=== PATIENT | male | born 1965 | race Two or more races ===

== ENCOUNTER 2018-04-01 08:53 | Emergency (ER) | payer OTHER ==
[2018-04-01 09:12] VITALS: BP 190/118
--- NOTE | 2018-04-01 09:12 | UC ---
Abdominal Pain Male HPI - HPI Summary HPI Summary: This is scribe, Paulo Kent, documenting for attending Dr. David Hendricks MD. A 52 y/o M presents to [facility] with c/o intermittent, R-sided suprapubic abd pain initial onset 1.5 months ago. Pt is speaking Irish, he has brought a friend to help translate. He ahs minimal pain at bedside. Associated sx: mild cough. Denies nausea, fever, genital pain. He is a non-smoker. Does not take daily medications. Allergic to penicillin (rash). Pt is unsure when he last saw a doctor. Denies FHx of abd problems. Denies surgical history. Pt does not have a PCP locally, he recently moved from [place]. I, Dr. Hendricks, personally performed the services described in this documentation as scribed in my presence and it is both accurate and complete. - History of Current Complaint Stated Complaint: ABD PAIN Hx Obtained From: Patient, Radar Repairer - friend Onset/Duration: Lasting Weeks, Still Present Timing: Intermittent Episodes Lasting: Severity Currently: Mild Location: Suprapubic - R-sided Associated Signs And Symptoms: Positive: Cough - mild. Negative: Fever, Nausea , Other - neg: genital pain - Allergies/Home Medications Allergies/Adverse Reactions: Allergies Allergy/AdvReac Type Severity Reaction Status Date / Time Penicillins Allergy Rash Verified 04/01/18 09:07 Home Medications: Home Medications NK [No Home Medications Reported] 04/01/18 [History Confirmed 04/01/18] PMH/Surg Hx/FS Hx/Imm Hx Previously Healthy: Yes - denies PMHx Other Endocrine History: neg: pacemaker Other Respiratory History: neg: COPD - Family History Known Family History: Positive: Cardiac Disease - mother , Hypertension Negative: Other - neg: abd problems - Social History Occupation: Unemployed Lives: Alone Smoking Status (MU): Never Smoked Tobacco - Non-smoker Review of Systems Constitutional: Negative - fever Respiratory: Cough - mild Gastrointestinal: Abdominal Pain, Other - neg: nausea Genitourinary: Other - neg: genital pain Is Patient Immunocompromised?: No All Other Systems Reviewed And Are Negative: Yes Physical Exam - Summary Physical Exam Summary: Appearance: Well appearing, no pain distress, moves freely without pain Skin: warm, dry, reflects adequate perfusion; soft 1 cm sebaceous cyst on R scapular area Head/face: normal Eyes: EOMI, GARTH ENT: normal Neck: supple, non-tender Respiratory: CTA, breath sounds present Cardiovascular: RRR, pulses symmetrical Abdomen: non-tender, soft, no pulsatile abd mass Genital: normal, no hernia Bowel Sounds: present Musculoskeletal: normal, strength/ROM intact; no LE edema Neuro: normal, sensory motor intact, A&Ox3 Triage Information Reviewed: Yes Vital Signs Reviewed: Yes Abd Pain Male Course/Dx - Course Course Of Treatment: BP noted and advised to follow up with PCP. Patient with intermittent abdominal pain over the last 1-1-1/2 months. No primary care follow-up. Hasn't seen a doctor in many years. Recently moved here from [place]. Abdomen is soft and nontender. There is no hernia sacs. He is having no urinary symptoms. I explained a shot and his friend/foreign language interpreter that we are limited in the testing we can obtain here. I offered them to go to the ER which they declined given that he is having no pain at present. His blood pressure is significantly elevated and it is unknown if this has been the case in the past. He will follow up closely with a primary care physician is giving the [facility] follow-up for the next several days. He is given the referral line to schedule appointment with a primary care physician. He is also instructed to go to the emergency room with return of abdominal pain, worse or other concerns. - Differential Dx/Clinical Impression Provider Diagnoses: 1. Chronic Abdominal Pain. 2. Elevated BP without dx of HTN Discharge - Sign-Out/Discharge Documenting (check all that apply): Patient Departure - Discharge Plan Condition: Improved Disposition: HOME Patient Education Materials: Hypertension (ED), Chronic Abdominal Pain (ED) Print Language: UKRAINIAN Referrals: [facility] [Outside] [facility] REFERRAL [Outside] Additional Instructions: Your blood pressure was elevated during todays visit; please follow up with your primary care provider within a week for further evaluation. Call today to schedule an appointment with a doctor. You will need to have your blood pressure rechecked within 1 week. Do not smoke or drink alcohol. You should also schedule to have a colonscopy. You may need blood work, imaging such as CT scan or other testing if you continue to have abdominal pain. Take tylenol or ibuprofen for discomfort. Go to the ER with increased abdominal pain , fever, worse or other concerns as discussed. The urgent care center is very limited in the testing it can provide for this type of complaint. Llame hoy para programar jaswant jeremie con un mdico. Tendr que volver a controlar evans presin arterial dentro de 1 semana. No fume ni max alcohol. [place] debe programar para tener jaswant colonscopa. Es posible que necesite anlisis de charles , imgenes emory jaswant tomografa computarizada u otras pruebas si contina teniendo dolor abdominal. [place] Tylenol o ibuprofeno para la incomodidad. Vaya a la carl de emergencias con un aumento de dolor abdominal, fiebre, empeoramiento u otras preocupaciones, emory se discuti. El centro de atencin de urgencia es muy limitado en las pruebas que puede proporcionar para erwin tipo de reclamo. - Billing Disposition and Condition Condition: IMPROVED Disposition: Home
== END 2018-04-01 09:32 | disposition home or self-care (01) ==
LOC: UCEAST 08:53
DX: R10.30 Lower abdominal pain, unspecified (principal); R03.0 Elevated blood-pressure reading, without diagnosis of hypertension; R05 Cough; Z88.0 Allergy status to penicillin; Z82.49 Family history of ischemic heart disease and other diseases of the circulatory system
CPT/HCPCS: 99201; G0463

== ENCOUNTER 2020-11-01 08:33 | Inpatient (IN) ==
[2020-11-01] MEDS ORDERED: NS 0.9% 1000 ml BAG 1,000 ML IV ONE (09:01)
[2020-11-01 10:04] LABS: ABS Basophils 0.1 10^3/ul (0-0.2); ABS Eosinophils 0.2 10^3/ul (0-0.6); ABS Lymphocytes 2.9 10^3/ul (1.0-4.8); ABS Monocytes 0.8 10^3/ul (0-0.8); ABS Neutrophils 1.6 10^3/ul (1.5-7.7); Eosinophil % 4.4 %; Hematocrit 42 % (42-52); Hemoglobin 14.7 g/dL (14.0-18.0); Lymphocyte % 51.9 %; Mean Corpuscular HGB Conc 35 g/dL (31-36); Mean Corpuscular Hemoglobin 32 pg (27-31); Mean Corpuscular Volume 93 fL (80-94); Platelet Count 157 10^3/uL (150-450); Red Blood Count 4.55 10^6 /uL (4.18-5.48); Red Cell Distribution Width 13 % (10-15); White Blood Count 5.6 10^3/uL (3.5-10.8)
[2020-11-01 10:22] LABS: Albumin 4.4 g/dL (3.2-5.2); Albumin/Globulin Ratio 1.3 (1-3); BUN/Creatinine Ratio 6.5 (8-20); Calcium 9.3 mg/dL (8.6-10.3); EGFR African American 101.3 (>60); EGFR Non-African American 83.7 (>60); Globulin 3.3 g/dL (2-4); Total Bilirubin 0.5 mg/dL (0.2-1.0); Total Protein 7.7 g/dL (6.4-8.9)
[2020-11-01 10:38] LABS: TSH Ultra Thyroid Stim Horm 1.77 mcIU/mL (0.34-5.60)
[2020-11-01] MEDS ORDERED: Iohexol 350 (CONTRAST) 500 ML MDV IV ONE (10:38)
[2020-11-01] MEDS ORDERED: hydrALAZINE 20 mg/ml 1 ML Vial IV IV SLOW PU ONE (12:46)
[2020-11-01 12:50] LABS: Urine Appearance Clear; Urine Bilirubin Negative (Negative); Urine Blood Negative (Negative); Urine Color Straw; Urine Glucose Negative (Negative); Urine Ketones Negative (Negative); Urine Nitrite Negative (Negative); Urine Protein Negative (Negative); Urine Specific Gravity 1.012 (1.010-1.030); Urine Urobilinogen Negative (Negative)
[2020-11-01 13:30] LABS: Potassium 4.1 mmol/L (3.5-5.0)
[2020-11-01] MEDS ORDERED: Thiamine 100 MG/ML 2 ml VIAL (200 mg) IM ONE (13:49)
[2020-11-02 05:57] LABS: ABS Monocytes 0.8 10^3/ul (0-0.8); ABS Neutrophils 3.9 10^3/ul (1.5-7.7); Eosinophil % 0.5 %; Hematocrit 41 % (42-52); Hemoglobin 14.3 g/dL (14.0-18.0); Lymphocyte % 17.7 %; Mean Corpuscular HGB Conc 35 g/dL (31-36); Mean Corpuscular Hemoglobin 32 pg (27-31); Mean Corpuscular Volume 92 fL (80-94); Mean Platelet Volume 7.7 fL (7.4-10.4); Nucleated Red Blood Cells % 0.1; Platelet Count 155 10^3/uL (150-450); Red Blood Count 4.45 10^6 /uL (4.18-5.48); Red Cell Distribution Width 13 % (10-15); White Blood Count 5.9 10^3/uL (3.5-10.8)
[2020-11-02 06:13] LABS: Albumin 4.3 g/dL (3.2-5.2); Albumin/Globulin Ratio 1.4 (1-3); BUN/Creatinine Ratio 9.7 (8-20); Calcium 9.8 mg/dL (8.6-10.3); EGFR African American 101.3 (>60); EGFR Non-African American 83.7 (>60); Globulin 3.1 g/dL (2-4); Total Protein 7.4 g/dL (6.4-8.9)
[2020-11-02] MEDS: Multivitamins/Minerals TAB PO SCH (10:03)
[2020-11-02] MEDS ORDERED: hydrALAZINE 20 mg/ml 1 ML Vial IV IV SLOW PU PRN (10:25)
[2020-11-02] MEDS ORDERED: Diazepam INJ CARPUJECT 5 MG/ML IV ONE (14:26)
[2020-11-02] MEDS: Dexmedetomidine 1,000 MCG in NS 0.9% 250 ml 240 ML IV SCH (16:43)
[2020-11-02] MEDS: Thiamine 100 MG/ML 2 ml VIAL 500 MG in NS 0.9% 250 ml 250 ML IV SCH (18:20)
[2020-11-03] MEDS: Thiamine 100 MG/ML 2 ml VIAL 500 MG in NS 0.9% 250 ml 250 ML IV SCH ×3 (04:00→17:53)
[2020-11-03] MEDS ORDERED: Lorazepam PYXIS KEY PRN ×2 (04:03→09:42)
[2020-11-03 05:02] LABS: ABS Eosinophils 0.1 10^3/ul (0-0.6); ABS Lymphocytes 0.8 10^3/ul (1.0-4.8); ABS Monocytes 0.9 10^3/ul (0-0.8); ABS Neutrophils 5.1 10^3/ul (1.5-7.7); Albumin 4.1 g/dL (3.2-5.2); Albumin/Globulin Ratio 1.3 (1-3); BUN/Creatinine Ratio 14.7 (8-20); Calcium 9.7 mg/dL (8.6-10.3); EGFR African American 98.9 (>60); EGFR Non-African American 81.7 (>60); Eosinophil % 1.7 %; Globulin 3.1 g/dL (2-4); Hematocrit 40 % (42-52); Hemoglobin 14.1 g/dL (14.0-18.0); Lymphocyte % 11.8 %; Mean Corpuscular HGB Conc 35 g/dL (31-36); Mean Corpuscular Hemoglobin 32 pg (27-31); Mean Corpuscular Volume 92 fL (80-94); Mean Platelet Volume 8.3 fL (7.4-10.4); Nucleated Red Blood Cells % 0.1; Platelet Count 140 10^3/uL (150-450); Potassium 3.8 mmol/L (3.5-5.0); Red Blood Count 4.39 10^6 /uL (4.18-5.48); Red Cell Distribution Width 14 % (10-15); Total Bilirubin 1.4 mg/dL (0.2-1.0); Total Protein 7.2 g/dL (6.4-8.9)
[2020-11-03] MEDS: LORazepam 2 mg VIAL 1 ml IV PUSH SCH ×6 (06:20→22:55)
[2020-11-03] MEDS ORDERED: Potassium Chlor 20 meq TAB.ER PO ONE (08:00)
[2020-11-03] MEDS: Dexmedetomidine 1,000 MCG in NS 0.9% 250 ml 240 ML IV SCH ×2 (09:00→23:32)
[2020-11-03 10:19] LABS: Phosphorus 4.3 mg/dL (2.5-5.0)
[2020-11-03] MEDS: Multivitamins/Minerals TAB PO SCH (10:33)
[2020-11-03] MEDS: LORazepam 2 mg VIAL 1 ml IV PUSH PRN ×2 (12:04→22:02)
[2020-11-03] MEDS: KCL 10 MEQ/50 ML IVPREMIX 10 MEQ/50 ML BAG IV SCH ×2 (13:42→15:09)
[2020-11-03 15:24] LABS: Urine Benzodiazepine Screen None Detected (None Detect); Urine Cannabinoids Screen None Detected (None Detect); Urine Opiates Screen None Detected (None Detect)
[2020-11-04] MEDS: LORazepam 2 mg VIAL 1 ml IV PUSH SCH ×3 (00:08→22:15)
[2020-11-04] MEDS: Thiamine 100 MG/ML 2 ml VIAL 500 MG in NS 0.9% 250 ml 250 ML IV SCH ×2 (02:00→11:38)
[2020-11-04 05:27] LABS: ABS Eosinophils 0.1 10^3/ul (0-0.6); ABS Lymphocytes 1.2 10^3/ul (1.0-4.8); ABS Neutrophils 5.5 10^3/ul (1.5-7.7); Eosinophil % 1.4 %; Hematocrit 41 % (42-52); Hemoglobin 14.3 g/dL (14.0-18.0); Lymphocyte % 15.1 %; Mean Corpuscular HGB Conc 35 g/dL (31-36); Mean Corpuscular Hemoglobin 32 pg (27-31); Mean Corpuscular Volume 93 fL (80-94); Mean Platelet Volume 8.4 fL (7.4-10.4); Platelet Count 126 10^3/uL (150-450); Red Blood Count 4.41 10^6 /uL (4.18-5.48); Red Cell Distribution Width 14 % (10-15); White Blood Count 7.9 10^3/uL (3.5-10.8)
[2020-11-04 05:43] LABS: BUN/Creatinine Ratio 16.5 (8-20); Calcium 9.1 mg/dL (8.6-10.3); EGFR African American 122.3 (>60); EGFR Non-African American 101.1 (>60); Magnesium 1.9 mg/dL (1.9-2.7); Potassium 3.7 mmol/L (3.5-5.0)
[2020-11-04] MEDS ORDERED: Magnesium Sulfate IV 1GM/100ML 1 GM/100 ML BAG IV ONE (07:01)
[2020-11-04] MEDS: KCL 10 MEQ/50 ML IVPREMIX 10 MEQ/50 ML BAG IV SCH ×2 (09:05→12:34)
[2020-11-04] MEDS: Multivitamins/Minerals TAB PO SCH (10:22)
[2020-11-04] MEDS ORDERED: Potassium Chlor 20 meq TAB.ER PO ONE (10:58)
[2020-11-04] MEDS: LORazepam 2 mg VIAL 1 ml IV PUSH PRN (22:43)
[2020-11-05] MEDS: LORazepam 2 mg VIAL 1 ml IV PUSH SCH (00:52)
[2020-11-05 05:40] LABS: ABS Eosinophils 0.2 10^3/ul (0-0.6); ABS Lymphocytes 1.4 10^3/ul (1.0-4.8); ABS Monocytes 1.3 10^3/ul (0-0.8); ABS Neutrophils 4.2 10^3/ul (1.5-7.7); Eosinophil % 3.2 %; Hematocrit 40 % (42-52); Hemoglobin 13.8 g/dL (14.0-18.0); Lymphocyte % 20.2 %; Mean Corpuscular HGB Conc 34 g/dL (31-36); Mean Corpuscular Hemoglobin 32 pg (27-31); Mean Corpuscular Volume 93 fL (80-94); Mean Platelet Volume 8.7 fL (7.4-10.4); Nucleated Red Blood Cells % 0.1; Platelet Count 140 10^3/uL (150-450); Red Blood Count 4.31 10^6 /uL (4.18-5.48); Red Cell Distribution Width 13 % (10-15); White Blood Count 7.2 10^3/uL (3.5-10.8)
[2020-11-05 05:57] LABS: BUN/Creatinine Ratio 16.5 (8-20); EGFR African American 103.9 (>60); EGFR Non-African American 85.9 (>60); Phosphorus 4.1 mg/dL (2.5-5.0); Potassium 3.7 mmol/L (3.5-5.0)
[2020-11-05] MEDS: Dexmedetomidine 1,000 MCG in NS 0.9% 250 ml 240 ML IV SCH (06:09)
[2020-11-05] MEDS: Potassium Chlor 20 meq TAB.ER PO ONE ×2 (08:46→08:56)
[2020-11-05] MEDS: Thiamine 100 MG/ML 2 ml VIAL 250 MG in NS 0.9% 100 ml BAG 100 ML IV SCH (08:46)
[2020-11-05] MEDS: Multivitamins/Minerals TAB PO SCH (08:56)
[2020-11-05] MEDS ORDERED: Potassium Chloride LIQUID 20 MEQ/15 ML LIQUID PO ONE (09:43)
[2020-11-06] MEDS: LORazepam 2 mg VIAL 1 ml IV PUSH SCH ×2 (02:00→23:31)
[2020-11-06] MEDS: LORazepam 2 mg VIAL 1 ml IV PUSH PRN ×2 (02:01→22:14)
[2020-11-06 04:47] LABS: ABS Basophils 0.1 10^3/ul (0-0.2); ABS Eosinophils 0.2 10^3/ul (0-0.6); ABS Lymphocytes 2.2 10^3/ul (1.0-4.8); ABS Monocytes 1.6 10^3/ul (0-0.8); ABS Neutrophils 4.4 10^3/ul (1.5-7.7); Eosinophil % 2.9 %; Hematocrit 41 % (42-52); Hemoglobin 14.6 g/dL (14.0-18.0); Lymphocyte % 25.8 %; Mean Corpuscular HGB Conc 35 g/dL (31-36); Mean Corpuscular Hemoglobin 33 pg (27-31); Mean Corpuscular Volume 93 fL (80-94); Mean Platelet Volume 8.8 fL (7.4-10.4); Platelet Count 154 10^3/uL (150-450); Red Blood Count 4.46 10^6 /uL (4.18-5.48); Red Cell Distribution Width 14 % (10-15); White Blood Count 8.4 10^3/uL (3.5-10.8)
[2020-11-06 05:02] LABS: Albumin 3.9 g/dL (3.2-5.2); Albumin/Globulin Ratio 1.2 (1-3); BUN/Creatinine Ratio 9.1 (8-20); Calcium 9.3 mg/dL (8.6-10.3); EGFR African American 94.3 (>60); EGFR Non-African American 77.9 (>60); Globulin 3.2 g/dL (2-4); Magnesium 1.8 mg/dL (1.9-2.7); Potassium 3.6 mmol/L (3.5-5.0); Total Protein 7.1 g/dL (6.4-8.9)
[2020-11-06] MEDS ORDERED: Magnesium Sulfate 2 gm BAG 2 GM/50 ML BAG IVPB ONE (07:06)
[2020-11-06] MEDS: Multivitamins/Minerals TAB PO SCH (08:50)
[2020-11-06] MEDS: Thiamine 100 MG/ML 2 ml VIAL 250 MG in NS 0.9% 100 ml BAG 100 ML IV SCH (08:51)
[2020-11-06] MEDS ORDERED: Potassium Chloride LIQUID 20 MEQ/15 ML LIQUID PO ONE (08:55)
[2020-11-06] MEDS: KCL 10 MEQ/50 ML IVPREMIX 10 MEQ/50 ML BAG IV SCH ×3 (10:13→14:33)
[2020-11-06] MEDS ORDERED: KCL 10 MEQ/50 ML IVPREMIX 10 MEQ/50 ML BAG ONE (14:32)
[2020-11-07] MEDS: LORazepam 2 mg VIAL 1 ml IV PUSH SCH ×2 (04:04→09:15)
[2020-11-07] MEDS: LORazepam 2 mg VIAL 1 ml IV PUSH PRN (04:42)
[2020-11-07 05:40] LABS: ABS Basophils 0.1 10^3/ul (0-0.2); ABS Eosinophils 0.2 10^3/ul (0-0.6); ABS Lymphocytes 1.7 10^3/ul (1.0-4.8); ABS Monocytes 1.4 10^3/ul (0-0.8); ABS Neutrophils 3.4 10^3/ul (1.5-7.7); Eosinophil % 3.5 %; Hematocrit 42 % (42-52); Hemoglobin 14.6 g/dL (14.0-18.0); Lymphocyte % 24.7 %; Mean Corpuscular HGB Conc 35 g/dL (31-36); Mean Corpuscular Hemoglobin 32 pg (27-31); Mean Corpuscular Volume 93 fL (80-94); Mean Platelet Volume 8.4 fL (7.4-10.4); Nucleated Red Blood Cells % 0.1; Platelet Count 154 10^3/uL (150-450); Red Blood Count 4.53 10^6 /uL (4.18-5.48); Red Cell Distribution Width 14 % (10-15); White Blood Count 6.9 10^3/uL (3.5-10.8)
[2020-11-07 05:53] LABS: BUN/Creatinine Ratio 9.3 (8-20); Calcium 9.4 mg/dL (8.6-10.3); EGFR African American 96.5 (>60); EGFR Non-African American 79.8 (>60); Magnesium 2.2 mg/dL (1.9-2.7)
[2020-11-07] MEDS: Multivitamins/Minerals TAB PO SCH (09:14)
[2020-11-07] MEDS: Thiamine 100 MG/ML 2 ml VIAL 250 MG in NS 0.9% 100 ml BAG 100 ML IV SCH (09:16)
[2020-11-08 08:47] LABS: ABS Basophils 0.1 10^3/ul (0-0.2); ABS Eosinophils 0.3 10^3/ul (0-0.6); ABS Lymphocytes 1.7 10^3/ul (1.0-4.8); ABS Monocytes 0.9 10^3/ul (0-0.8); ABS Neutrophils 3.9 10^3/ul (1.5-7.7); Eosinophil % 4.3 %; Hematocrit 43 % (42-52); Hemoglobin 14.6 g/dL (14.0-18.0); Lymphocyte % 25.3 %; Mean Corpuscular HGB Conc 34 g/dL (31-36); Mean Corpuscular Hemoglobin 32 pg (27-31); Mean Corpuscular Volume 94 fL (80-94); Mean Platelet Volume 8.3 fL (7.4-10.4); Platelet Count 168 10^3/uL (150-450); Red Blood Count 4.56 10^6 /uL (4.18-5.48); Red Cell Distribution Width 14 % (10-15); White Blood Count 6.9 10^3/uL (3.5-10.8)
[2020-11-08 09:03] LABS: BUN/Creatinine Ratio 15.3 (8-20); Calcium 9.5 mg/dL (8.6-10.3); EGFR African American 72.7 (>60); EGFR Non-African American 60.1 (>60); Potassium 4.2 mmol/L (3.5-5.0)
[2020-11-08] MEDS: Multivitamins/Minerals TAB PO SCH (10:34)
[2020-11-08] MEDS: Thiamine 100 MG/ML 2 ml VIAL 250 MG in NS 0.9% 100 ml BAG 100 ML IV SCH (10:35)
[2020-11-08] MEDS ORDERED: NS 0.9% 1000 ml BAG 1,000 ML IV SCH (16:00)
[2020-11-09 06:15] LABS: ABS Basophils 0.1 10^3/ul (0-0.2); ABS Eosinophils 0.3 10^3/ul (0-0.6); ABS Lymphocytes 1.8 10^3/ul (1.0-4.8); ABS Monocytes 1.3 10^3/ul (0-0.8); ABS Neutrophils 3.3 10^3/ul (1.5-7.7); Eosinophil % 3.9 %; Hematocrit 38 % (42-52); Hemoglobin 13.1 g/dL (14.0-18.0); Lymphocyte % 26.3 %; Mean Corpuscular HGB Conc 35 g/dL (31-36); Mean Corpuscular Hemoglobin 32 pg (27-31); Mean Corpuscular Volume 93 fL (80-94); Mean Platelet Volume 8.9 fL (7.4-10.4); Platelet Count 176 10^3/uL (150-450); Red Blood Count 4.09 10^6 /uL (4.18-5.48); Red Cell Distribution Width 14 % (10-15); White Blood Count 6.7 10^3/uL (3.5-10.8)
[2020-11-09 06:37] LABS: BUN/Creatinine Ratio 18.8 (8-20); EGFR African American 97.7 (>60); EGFR Non-African American 80.7 (>60); Magnesium 1.9 mg/dL (1.9-2.7); Potassium 3.9 mmol/L (3.5-5.0)
[2020-11-09] MEDS: Thiamine 100 MG/ML 2 ml VIAL 250 MG in NS 0.9% 100 ml BAG 100 ML IV SCH (09:18)
[2020-11-09] MEDS: Multivitamins/Minerals TAB PO SCH (09:18)
[2020-11-09 17:45] VITALS: BP 119/82
== END 2020-11-09 17:25 | disposition home or self-care (01) | DRG 775 ==
LOC: MEDTELE 08:33 → ED 08:33 → ICU 11-02 16:18 → MEDTELE 11-06 17:29
PROVIDERS: ADMIT Internal Medicine; ATTEND Internal Medicine

== ENCOUNTER 2024-03-06 21:37 | Inpatient (IN) ==
[2024-03-06 22:37] LABS: ABS Eosinophils 0.1 10^3/uL (0.0-0.5); ABS Lymphocytes 2.5 10^3/uL (1.0-4.8); ABS Monocytes 0.6 10^3/uL (0.0-1.1); ABS Neutrophils 1.5 10^3/uL (1.5-7.6); ABS Nucleated RBC 0.01 10^3/ul; Eosinophil % 1.8 %; Hematocrit 42.8 % (38-53); Hemoglobin 14.8 g/dL (13.2-16.3); Lymphocyte % 52.5 %; Mean Corpuscular Hemoglobin 32.1 pg (27-33); Mean Corpuscular Hgb Conc 34.5 g/dL (31-36); Mean Corpuscular Volume 92.9 fL (80-97); Mean Platelet Volume 8.2 fL (7.5-11.2); Nucleated Red Blood Cells % 0.2 %/100WBC (0.0-0.8); Platelet Count 119 10^3/uL (150-450); White Blood Count 4.7 10^3/uL (3.6-10.2)
[2024-03-06 23:01] LABS: INR 0.95 (0.83-1.13)
[2024-03-06 23:21] LABS: Albumin 4.1 g/dL (3.2-5.2); Albumin/Globulin Ratio 1.2 (1-3); Calcium 8.6 mg/dL (8.6-10.3); Creatinine, Serum 0.8 mg/dL (0.67-1.17); Globulin 3.4 g/dL (2-4); Potassium 3.6 mmol/L (3.5-5.0); Total Bilirubin 0.8 mg/dL (0.2-1.0); Total Protein 7.5 g/dL (6.4-8.9); eGFR CKD-EPI 101.3 (>60)
[2024-03-06 23:51] LABS: Urine Appearance Clear; Urine Bilirubin Negative (Negative); Urine Blood Negative (Negative); Urine Color Colorless; Urine Glucose Negative (Negative); Urine Ketones Negative (Negative); Urine Nitrite Negative (Negative); Urine Protein Negative (Negative); Urine Specific Gravity 1.002 (1.002-1.030); Urine Urobilinogen Negative (Negative); Urine pH 5.5 (5.0-8.0)
[2024-03-07 00:16] LABS: High Sensitivity Troponin 1 Hr 4 pg/mL (<20)
[2024-03-07] MEDS: NS 0.9% 1000 ml BAG 1,000 ML IV ONE (01:25)
[2024-03-07] MEDS: Thiamine 100 MG/ML 2 ml VIAL (200 mg) IM ONE (06:52)
[2024-03-07] MEDS: LORazepam 2 mg VIAL 1 ml IV PUSH SCH ×3 (07:01→17:05)
[2024-03-07] MEDS ORDERED: Prochlorperazine 5 mg/ml 2 ml VIAL (10 mg) IV PRN (08:59)
[2024-03-07] MEDS: Multivitamins/Minerals TAB PO SCH (09:45)
[2024-03-07] MEDS: Thiamine 100 MG/ML 2 ml VIAL 500 MG in NS 0.9% 250 ml 250 ML IV ONE ×2 (12:17→16:42)
[2024-03-07] MEDS: diazePAM INJ CARPUJECT 5 MG/ML SYRINGE IV ONE ×2 (13:46→13:56)
[2024-03-07] MEDS ORDERED: Ondansetron 4 mg VIAL 2 MG/ML 2 ml VIAL IV PRN (17:00)
[2024-03-07] MEDS ORDERED: Labetalol IV 5 MG/ML 20 ml VIAL IV PUSH PRN (18:35)
[2024-03-07] MEDS: LORazepam 2 mg VIAL 1 ml ONE (21:20)
[2024-03-08] MEDS: Thiamine IV 500 MG in NS 0.9% 250 ML (Wernicke-Korsakoff) IV SCH (02:07)
[2024-03-08] MEDS: LORazepam 2 mg VIAL 1 ml ONE ×4 (02:20→17:32)
[2024-03-08 09:11] LABS: ABS Basophils 0.1 10^3/uL (0.0-0.1); ABS Lymphocytes 1.1 10^3/uL (1.0-4.8); ABS Nucleated RBC 0.01 10^3/ul; Eosinophil % 0.7 %; Hemoglobin 13.6 g/dL (13.2-16.3); Mean Corpuscular Hemoglobin 32.7 pg (27-33); Mean Corpuscular Hgb Conc 34.7 g/dL (31-36); Mean Platelet Volume 8.4 fL (7.5-11.2); Nucleated Red Blood Cells % 0.2 %/100WBC (0.0-0.8); Platelet Count 98 10^3/uL (150-450); RBC Morphology Normal (Normal); Red Blood Count 4.15 10^6/uL (4.06-5.63); Red Cell Distribution Width 13.6 % (12-17); White Blood Count 6.2 10^3/uL (3.6-10.2)
[2024-03-08 09:24] LABS: ALT 93 U/L (7-52); Albumin/Globulin Ratio 1.2 (1-3); Alkaline Phosphatase 63 U/L (35-149); Anion Gap 16 mmol/L (2-16); Blood Urea Nitrogen 7 mg/dL (6-24); CO2 Carbon Dioxide 19 mmol/L (22-32); Calcium 8.8 mg/dL (8.6-10.3); Chloride 97 mmol/L (101-111); Creatinine, Serum 0.54 mg/dL (0.67-1.17); Globulin 3.3 g/dL (2-4); Glucose 102 mg/dL (70-100); Magnesium 2.1 mg/dL (1.9-2.7); Sodium 132 mmol/L (135-145); Total Bilirubin 1.7 mg/dL (0.2-1.0); Total Protein 7.3 g/dL (6.4-8.9); eGFR CKD-EPI 114.1 (>60)
[2024-03-08 11:22] LABS: Potassium Redraw 3.6 mmol/L (3.5-5.0)
[2024-03-08 11:23] LABS: Calcium 9.4 mg/dL (8.6-10.3); Creatinine, Serum 0.66 mg/dL (0.67-1.17); Phosphorus 2.8 mg/dL (2.5-5.0); Potassium 3.6 mmol/L (3.5-5.0); eGFR CKD-EPI 107.4 (>60)
[2024-03-08] MEDS: KCL 20 MEQ/100 ML IVPREMIX 20 MEQ/100 ML BAG IV SCH (12:17)
[2024-03-09 04:48] LABS: ABS Basophils 0.1 10^3/uL (0.0-0.1); ABS Eosinophils 0.1 10^3/uL (0.0-0.5); ABS Lymphocytes 1.4 10^3/uL (1.0-4.8); ABS Monocytes 1.3 10^3/uL (0.0-1.1); ABS Neutrophils 5.6 10^3/uL (1.5-7.6); ABS Nucleated RBC 0.01 10^3/ul; Eosinophil % 0.8 %; Hematocrit 45.2 % (38-53); Hemoglobin 15.5 g/dL (13.2-16.3); Lymphocyte % 16.4 %; Mean Corpuscular Hemoglobin 32.3 pg (27-33); Mean Corpuscular Hgb Conc 34.4 g/dL (31-36); Mean Platelet Volume 8.9 fL (7.5-11.2); Nucleated Red Blood Cells % 0.1 %/100WBC (0.0-0.8); Platelet Count 118 10^3/uL (150-450); Red Blood Count 4.81 10^6/uL (4.06-5.63); Red Cell Distribution Width 13.9 % (12-17); White Blood Count 8.4 10^3/uL (3.6-10.2)
[2024-03-09 05:41] LABS: Albumin 3.9 g/dL (3.2-5.2); Albumin/Globulin Ratio 1.2 (1-3); Calcium 8.9 mg/dL (8.6-10.3); Creatinine, Serum 0.7 mg/dL (0.67-1.17); Globulin 3.2 g/dL (2-4); Phosphorus 2.7 mg/dL (2.5-5.0); Potassium 3.9 mmol/L (3.5-5.0); Total Protein 7.1 g/dL (6.4-8.9); eGFR CKD-EPI 105.5 (>60)
[2024-03-09] MEDS: D5LR 1000 ml BAG 1,000 ML IV SCH (10:37)
[2024-03-09] MEDS: LORazepam 2 mg VIAL 1 ml IV PUSH SCH (17:23)
[2024-03-09 17:38] LABS: Calcium 8.8 mg/dL (8.6-10.3); Creatinine, Serum 0.72 mg/dL (0.67-1.17); Magnesium 1.9 mg/dL (1.9-2.7); Phosphorus 2.4 mg/dL (2.5-5.0); Potassium 3.9 mmol/L (3.5-5.0); eGFR CKD-EPI 104.6 (>60)
[2024-03-09] MEDS: Enoxaparin 40 MG/0.4 ML SYR SUBCUT SCH (20:37)
[2024-03-09] MEDS: Potassium Phosphate IV 10 MMOL in NS 0.9% 250 ml 250 ML IVPB ONE (20:37)
[2024-03-10] MEDS: LORazepam 2 mg VIAL 1 ml ONE ×2 (03:06→05:24)
[2024-03-10] MEDS ORDERED: Lorazepam PYXIS KEY PRN (03:54)
[2024-03-10] MEDS: LORazepam 2 mg VIAL 1 ml IV PUSH SCH (05:03)
[2024-03-10 05:10] LABS: ABS Basophils 0.1 10^3/uL (0.0-0.1); ABS Eosinophils 0.1 10^3/uL (0.0-0.5); ABS Lymphocytes 1.7 10^3/uL (1.0-4.8); ABS Monocytes 1.4 10^3/uL (0.0-1.1); ABS Neutrophils 4.2 10^3/uL (1.5-7.6); Hematocrit 39.8 % (38-53); Hemoglobin 14.3 g/dL (13.2-16.3); Lymphocyte % 23.4 %; Mean Corpuscular Hemoglobin 33.1 pg (27-33); Mean Corpuscular Hgb Conc 35.8 g/dL (31-36); Mean Corpuscular Volume 92.5 fL (80-97); Mean Platelet Volume 8.6 fL (7.5-11.2); Platelet Count 100 10^3/uL (150-450); Red Cell Distribution Width 13.8 % (12-17); White Blood Count 7.4 10^3/uL (3.6-10.2)
[2024-03-10 05:52] LABS: Albumin 3.5 g/dL (3.2-5.2); Albumin/Globulin Ratio 1.2 (1-3); Calcium 8.6 mg/dL (8.6-10.3); Creatinine, Serum 0.72 mg/dL (0.67-1.17); Globulin 2.9 g/dL (2-4); Magnesium 1.7 mg/dL (1.9-2.7); Phosphorus 3.1 mg/dL (2.5-5.0); Potassium 3.7 mmol/L (3.5-5.0); Total Bilirubin 1.8 mg/dL (0.2-1.0); Total Protein 6.4 g/dL (6.4-8.9); eGFR CKD-EPI 104.6 (>60)
[2024-03-10] MEDS: Magnesium Sulfate 2 gm BAG 2 GM/50 ML BAG IVPB ONE ×2 (07:19→07:54)
[2024-03-10] MEDS ORDERED: Magnesium Sulfate IV 1GM/100ML 1 GM/100 ML BAG IV ONE (09:26)
[2024-03-10] MEDS: Potassium Chlor 20 meq TAB.ER PO ONE (15:23)
[2024-03-10] MEDS: Haloperidol 5 mg/ml SDV IV/IM 5 MG/ML AMP IV SLOW PU PRN (22:42)
[2024-03-11 12:37] LABS: Hematocrit 40.3 % (38-53); Hemoglobin 13.5 g/dL (13.2-16.3); Mean Corpuscular Hemoglobin 31.7 pg (27-33); Mean Corpuscular Hgb Conc 33.6 g/dL (31-36); Mean Corpuscular Volume 94.2 fL (80-97); Mean Platelet Volume 9.1 fL (7.5-11.2); Platelet Count 122 10^3/uL (150-450); Red Blood Count 4.28 10^6/uL (4.06-5.63); Red Cell Distribution Width 13.8 % (12-17)
[2024-03-11 12:39] LABS: ABS Basophils 0.1 10^3/uL (0.0-0.1); ABS Eosinophils 0.2 10^3/uL (0.0-0.5); ABS Lymphocytes 1.7 10^3/uL (1.0-4.8); ABS Monocytes 1.4 10^3/uL (0.0-1.1); ABS Neutrophils 3.7 10^3/uL (1.5-7.6); ABS Nucleated RBC 0.01 10^3/ul; Eosinophil % 2.4 %; Lymphocyte % 23.9 %; Nucleated Red Blood Cells % 0.1 %/100WBC (0.0-0.8)
[2024-03-11 13:55] LABS: Albumin 3.5 g/dL (3.2-5.2); Albumin/Globulin Ratio 1.3 (1-3); Calcium 8.8 mg/dL (8.6-10.3); Creatinine, Serum 0.63 mg/dL (0.67-1.17); Globulin 2.6 g/dL (2-4); Magnesium 2.1 mg/dL (1.9-2.7); Total Protein 6.1 g/dL (6.4-8.9); eGFR CKD-EPI 108.9 (>60)
[2024-03-11 15:41] LABS: Potassium 3.8 mmol/L (3.5-5.0)
[2024-03-12 06:27] LABS: Hematocrit 40.4 % (38-53); Mean Corpuscular Hemoglobin 32.2 pg (27-33); Mean Corpuscular Hgb Conc 34.6 g/dL (31-36); Mean Platelet Volume 9.4 fL (7.5-11.2); Platelet Count 136 10^3/uL (150-450); Red Blood Count 4.34 10^6/uL (4.06-5.63); Red Cell Distribution Width 13.8 % (12-17); White Blood Count 5.7 10^3/uL (3.6-10.2)
[2024-03-12 06:37] LABS: ABS Eosinophils 0.2 10^3/uL (0.0-0.5); ABS Lymphocytes 1.4 10^3/uL (1.0-4.8); ABS Monocytes 1.2 10^3/uL (0.0-1.1); ABS Neutrophils 2.9 10^3/uL (1.5-7.6); ABS Nucleated RBC 0.01 10^3/ul; Eosinophil % 2.8 %; Nucleated Red Blood Cells % 0.1 %/100WBC (0.0-0.8)
[2024-03-12 07:24] LABS: Albumin 3.4 g/dL (3.2-5.2); Albumin/Globulin Ratio 1.2 (1-3); Calcium 8.8 mg/dL (8.6-10.3); Creatinine, Serum 0.63 mg/dL (0.67-1.17); Globulin 2.9 g/dL (2-4); Phosphorus 3.8 mg/dL (2.5-5.0); Potassium 3.9 mmol/L (3.5-5.0); Total Bilirubin 0.9 mg/dL (0.2-1.0); Total Protein 6.3 g/dL (6.4-8.9); eGFR CKD-EPI 108.9 (>60)
[2024-03-12 18:19] VITALS: BP 124/93
== END 2024-03-12 20:30 | disposition home or self-care (01) | DRG 775 ==
LOC: ED 21:37 → EDHOLD 21:37 → ICU 03-07 15:20 → SUATTDRO 03-07 18:59 → MEDTELE 03-11 01:40
PROVIDERS: ADMIT Hospitalist; ATTEND Internal Medicine